=== PATIENT | male | born 1950 | race Caucasian/White ===

== ENCOUNTER 2016-07-14 11:23 | Day surgery (SDC) | payer OTHER ==
--- NOTE | 2016-07-14 12:54 | CP.SDSHP ---
Same Day Surgery H & P - History Proposed Procedure: colonoscopy - Previous Medical/Surgical History Previous Surgical History: knee Sx - Date & Time Date: 07/14/16 Time: 12:53 Short Stay Discharge - Short Stay Discharge Admitting Diagnosis/Reason for Visit: SCREENING Disposition: HOME/ ROUTINE
[2016-07-14 13:08] VITALS: BMI 25.4
[2016-07-14] MEDS ORDERED: Propofol 10 mg/ml Inj (20 ML) ONE (13:30)
[2016-07-14] MEDS ORDERED: Lidocaine Hydrochloride 5 ML INJ ONE (13:30)
[2016-07-14] MEDS ORDERED: Lactated Ringer's 1,000 ML IV SCH (13:30)
[2016-07-16 15:38] VITALS: BP 96/67; PULSE 73; RESP 14; TEMP 98; O2SAT 100
== END 2016-07-14 14:45 | disposition home or self-care (01) ==
LOC: C.ENDO 11:23
PROVIDERS: ATTEND Colon & Rectal Surgery
DX: Z12.11 Encounter for screening for malignant neoplasm of colon (principal); Q43.8 Other specified congenital malformations of intestine; K64.8 Other hemorrhoids
CPT/HCPCS: 45378; 82948; J2704; J7120